=== PATIENT | female | born 1950 | race African-American/Black ===

== ENCOUNTER 2018-04-16 15:59 | Emergency (ER) | payer MEDICARE, OTHER ==
[~2018-04-16] VITALS: Ht 154.9 cm; Wt 90.7 kg
[2018-04-16] MEDS ORDERED: HYDRALAZINE HCL25 MG PO (16:41)
[2018-04-16] MEDS ORDERED: LOSARTAN POTAS100 MG PO (16:41)
[2018-04-16] MEDS ORDERED: SYNTHROID75 MCG PO (16:41)
[2018-04-16] MEDS ORDERED: LASIX20 MG PO (16:41)
[2018-04-16] MEDS ORDERED: COREG12.5 MG PO (16:41)
[2018-04-16] MEDS ORDERED: CLONIDINE HCL 0.2 MG TAB PO ONE (17:15)
== END 2018-04-16 18:25 | disposition home or self-care (01) ==
LOC: FSED 15:59
DX: H10.33 Unspecified acute conjunctivitis, bilateral (principal); I10 Essential (primary) hypertension
CPT/HCPCS: 99283